=== PATIENT | female | born 1990 | race Caucasian/White ===

== ENCOUNTER 2017-09-06 12:01 | Emergency (ER) | payer SELFPAY ==
[2017-09-06 14:24] LABS: Bacteria,Urine 1+ /HPF (Negative); Bilirubin,Urine NEG (Negative); Blood,Urine NEG (Negative); Color,Urine Yellow (Yellow); Protein,Urine <15 mg/dL mg/dL (Negative); Urobilinogen,Urine < 2.0 mg/dL (<2.0)
[2017-09-06 14:28] LABS: HCG Qualitative,Urine Negative (Negative)
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
[2017-09-06 16:40] VITALS: BP 129/86
== END 2017-09-06 16:39 | disposition home or self-care (01) ==
LOC: ED 12:01
DX: M62.830 Muscle spasm of back (principal); F17.200 Nicotine dependence, unspecified, uncomplicated; F12.10 Cannabis abuse, uncomplicated
CPT/HCPCS: 81001; 81025; 99283